=== PATIENT | male | born 1980 | race Caucasian/White ===

== ENCOUNTER 2019-02-20 19:45 | Emergency (ER) | payer BC, OTHER ==
[~2019-02-20] VITALS: Ht 175.3 cm; Wt 88.5 kg
[2019-02-20 20:17] VITALS: BP 128/87
--- NOTE | 2019-02-20 20:23 | NUR ---
Patient discharged to home in stable conditon. Written and verbal after care instructions given. Patient verbalizes understanding of instructions. PATIENT LEFT WITH STABLE GAIT.
== END 2019-02-20 20:26 | disposition home or self-care (01) ==
LOC: ER 19:45
DX: M25.562 Pain in left knee (principal)
CPT/HCPCS: A4663